=== PATIENT | male | born 1935 | race Caucasian/White ===

== ENCOUNTER 2017-10-16 10:37 | Emergency (ER) | payer MEDICARE, BC ==
--- NOTE | 2017-10-16 13:25 | UC ---
Respiratory Complaint HPI - HPI Summary HPI Summary: 82 y/o male presents to the urgent care c/o productive cough, nasal congestion + PND for the past 4 days. Pt reports cough is producing yellowish phlegm, with body aches and chill at the beginning of symptoms. Pt has taken Alkazeltser cold and lfu to alleviate symptoms. Pt unaware of fever. Pt denies SOB, wheezing, chest pain, abdominal pain N/V/D. Pt states Hx of COPD. . - History of Current Complaint Chief Complaint: UCRespiratory Stated Complaint: COUGH RUNNY NOSE Time Seen by Provider: 10/16/17 13:14 Hx Obtained From: Patient Onset/Duration: Gradual Onset, Lasting Days - 4 days, Still Present, Worse Since - yesterday Timing: Intermittent Episodes Severity Initially: Mild Severity Currently: Moderate Pain Intensity: 0 Pain Scale Used: 0-10 Numeric Character: Cough: Productive, Sputum Description: - yellowish Aggravating Factors: Recumbent Position Alleviating Factors: OTC Meds Associated Signs And Symptoms: Positive: Chills, URI, Nasal Congestion - Risk Factors Pulmonary Embolism Risk Factors: Negative Cardiac Risk Factors: Hypertension, Diabetes Pseudomonas Risk Factors: Negative Tuberculosis Risk Factors: Negative - Allergies/Home Medications Allergies/Adverse Reactions: Allergies Allergy/AdvReac Type Severity Reaction Status Date / Time No Known Allergies Allergy Verified 10/16/17 11:58 Home Medications: Home Medications Aspirin EC Low Dose* [Ecotrin EC Low Dose 81 MG*] 81 mg PO DAILY 10/16/17 [ History Confirmed 10/16/17] Atenolol TAB* [Tenormin TAB* 50 MG] 100 mg PO BID 10/16/17 [History Confirmed ] Atorvastatin* [Lipitor 80 MG*] 80 mg PO DAILY 10/16/17 [History Confirmed ] Cholecalciferol TAB* [Vitamin D TAB*] 5,000 unit PO DAILY 10/16/17 [History Confirmed 10/16/17] Cinnamon Bark [Cinnamon] 500 mg PO BID 10/16/17 [History Confirmed 10/16/17] Clopidogrel TAB* [Plavix TAB*] 75 mg PO DAILY 10/16/17 [History Confirmed ] Flaxseed Oil 1,000 mg PO BID 10/16/17 [History Confirmed 10/16/17] Montelukast Sodium TAB* [Singulair 10 MG TAB*] 10 mg PO DAILY 10/16/17 [History Confirmed 10/16/17] Olmesartan/Hydrochlorothiazide [Olmesartan-Hctz 40-25 mg Tab] 1 tab PO DAILY 01/26 [History Confirmed 10/16/17] Saw [place] Fruit [Saw [place]] 450 mg PO BID 10/16/17 [History Confirmed 01/26] Vitamin THERAPEUTIC TAB* [Theragran TAB*] 1 tab PO DAILY 10/16/17 [History Confirmed 10/16/17] amLODIPine TAB* [Norvasc 5 mg TAB*] 5 mg PO DAILY 10/16/17 [History Confirmed ] dilTIAZem HCl [Cartia Xt] 240 mg PO DAILY 10/16/17 [History Confirmed 10/16/17] metFORMIN* [Glucophage 500 MG TAB *] 500 mg PO BID 10/16/17 [History Confirmed 10/16/17] PMH/Surg Hx/FS Hx/Imm Hx Previously Healthy: Yes Endocrine History: Diabetes, Dyslipidemia Cardiovascular History: Hypertension Respiratory History: COPD - Surgical History Surgical History: Unable to Obtain/Confirm - Family History Known Family History: Positive: Diabetes - Social History Occupation: Retired Lives: With Family Alcohol Use: Occasionally Substance Use Type: None Smoking Status (MU): Former Smoker When Did the Patient Quit Smoking/Using Tobacco: ~1992 Review of Systems Constitutional: Chills, Other - body aches Skin: Negative Eyes: Negative ENT: Nasal Discharge, Sinus Congestion Respiratory: Cough - productive Cardiovascular: Negative Gastrointestinal: Negative Genitourinary: Negative Motor: Negative Neurovascular: Negative Musculoskeletal: Negative Neurological: Negative Psychological: Negative Is Patient Immunocompromised?: No All Other Systems Reviewed And Are Negative: Yes Physical Exam Triage Information Reviewed: Yes Vital Signs: Initial Vital Signs Temp 98 F 10/16/17 11:57 Pulse 62 10/16/17 11:57 Resp 16 10/16/17 11:57 BP 181/75 10/16/17 11:57 Pulse Ox 96 10/16/17 11:57 - Additional Comments Vital Signs Reviewed: Yes General: well developed, well nourished male sitting in the examining table w/o any apparent distress Eyes: Positive: Conjunctiva Clear - PERRLA, EOMI, fundi grossly normal ENT: Positive: Normal ENT inspection, Hearing grossly normal, Pharynx normal, Nasal congestion - edematous and erythematous nasal mucosa, Nasal drainage - yellowish drainage, TMs normal. Negative: Tonsillar swelling, Tonsillar exudate Neck: Positive: Supple, Nontender, No Lymphadenopathy Respiratory: no orthopnea or dyspnea. Able to speak in full sentences, no retractions or accessory muscle use, no tripod position, stridor, or head bobbing. positive breath sound b/L .. Posterior upper lungs w/ mild scattered rhonchi. No wheezes, or rales. Cardiovascular: Positive: RRR, No Murmur, Pulses Normal, Brisk Capillary Refill Abdomen Description: Positive: Nontender, No Organomegaly, Soft. Negative: CVA Tenderness (R), CVA Tenderness (L) Bowel Sounds: Positive: Present Musculoskeletal Exam: Normal Musculoskeletal: Positive: Strength Intact, ROM Intact, No Edema Neurological Exam: Normal Psychological Exam: Normal Skin Exam: Normal UC Diagnostic Evaluation - Laboratory O2 Sat by Pulse Oximetry: 96 Respiratory Course/Dx - Course Course Of Treatment: 82 y/o male presents to the urgent care c/o productive cough, nasal congestion +PND for the past 4 days. Pt reports cough is producing yellowish phlegm, with body aches and chill at the beginning of symptoms. Pt has taken Alkazeltser cold and lfu to alleviate symptoms. Pt unaware of fever. Pt denies SOB, wheezing, chest pain, abdominal pain N/V/D. Pt states Hx of COPD. Hx obtained. Posterior upper lungs w/ mild scattered rhonchi. No wheezes, or rales. O2sat: 96%. Pt states that is his normal. Rapid Influenza A&B ordered ; negative. Pt with Acute bronchitis on examination. Pt Rx Doxycycline PO and Tessalon tabs PO to allelviate cough. Pt advised to increase fluid intake and eat well. if not improvement or worsening of symptoms to return to the urgent care or f/u with PCP for further management. Pt's BP is elevated today advised to decrease salt in diet, monitor BP and f/u with PCP for further management. Pt understood and agreed with plan of care. - Differential Dx/Diagnosis Differential Diagnosis/HQI/PQRI: Asthma, Bronchitis, Influenza, Lower Resp Infection, Sinusitis Provider Diagnoses: 1- Acute bronchitis. 2-Cough. 3-Uncontrolled HTN Discharge - Discharge Plan Condition: Stable Disposition: HOME Prescriptions: Benzonatate CAP* [Tessalon 100 MG CAP*] 100 mg PO TID PRN #21 cap PRN Reason: Cough DOXYcycline CAP(*) [DOXYcycline 100MG CAP(*)] 100 mg PO BID #20 cap Patient Education Materials: Acute Bronchitis (ED), Low-Sodium Diet (ED) Referrals: Elvi Robert PA [Primary Care Provider] - Additional Instructions: 1-Please take full course of antibiotic to avoid resistance. 2-Take Tessalon PO tabs as directed and use the inhaler you have at home to alleviate cough. Increase fluid intake, rest and eat well. 3- If symptoms do not improve or worsen or your develop SOB with fever and severe wheezing please go immediately to the ER further evaluation and treatment. 4- F/u with your PCP in 2-3 days for further management 5-Your BP is elevated today. please decrease salt in your diet, monitor BP and if it continues to be elevated please f/u with your PCP for further management
[2017-10-16 14:16] VITALS: BP 181/63
== END 2017-10-16 14:25 | disposition home or self-care (01) ==
LOC: UCCORT 10:37
DX: J20.9 Acute bronchitis, unspecified (principal); R05 Cough; I10 Essential (primary) hypertension; E11.9 Type 2 diabetes mellitus without complications; Z79.4 Long term (current) use of insulin; E78.5 Hyperlipidemia, unspecified; J44.9 Chronic obstructive pulmonary disease, unspecified; Z72.89 Other problems related to lifestyle; Z87.891 Personal history of nicotine dependence
CPT/HCPCS: 87502; 99212; G0463